=== PATIENT | male | born 1950 | race Caucasian/White ===

== ENCOUNTER → 2016-12-08 | Outpatient (CLI) | payer MEDICARE, BC ==
--- NOTE | 2016-12-08 11:08 | REP ---
TRANSRECTAL PROSTATE ULTRASOUND WITH ULTRASOUND GUIDANCE FOR PROSTATE BIOPSY: Real-time sonographic evaluation of the prostate performed utilizing transrectal probe. The size of the gland is 5.0 x 4.0 x 6.0 cm for a total volume of 62.5 mL. Echotexture of the gland is heterogeneous with scattered tiny echogenic calcifications. Seminal vesicles appear symmetrical. Ultrasound guidance was provided for Dr. Roach who performed ultrasound-guided biopsy of the prostate. Signed by Clement Gonzalez MD 12/08/2016 01:13 P
== END | disposition home or self-care (01) ==
LOC: M SMT PRO 08:23
PROVIDERS: ATTEND Urology
DX: R97.20 Elevated prostate specific antigen [PSA] (principal)
CPT/HCPCS: 55700; 76872; 76942; G0416